=== PATIENT | female | born 1975 | race Hispanic/Latino ===

== ENCOUNTER 2017-07-30 09:53 | Emergency (ER) | payer OTHER ==
[~2017-07-30] VITALS: Ht 157.5 cm; Wt 71.4 kg
[2017-07-30] MEDS ORDERED: COMPAZINE10 MG PO (10:27)
[2017-07-30 11:53] VITALS: BP 102/65
== END 2017-07-30 11:54 | disposition home or self-care (01) ==
LOC: EME 09:53
DX: G43.909 Migraine, unspecified, not intractable, without status migrainosus (principal); Z98.84 Bariatric surgery status
CPT/HCPCS: 99281; 99284; J0780